=== PATIENT | female | born 1955 | race African-American/Black ===

== ENCOUNTER → 2017-06-13 | Outpatient (CLI) | payer OTHER ==
--- NOTE | ~2017-06-13 | 2DMMODE ---
[facility] [address] [address] 2 D/M-MODE ECHOCARDIOGRAM Name: LUPE HADDAD [id number] Admission: 06/13/17 Attend Phys: Cain Padron, Discharge: Date of : 55 Date of Service: 06/13/17 1220 Report #: [id number] THIS REPORT FOR: //name// APPROVED REPORT Study performed: 06/13/2017 09:45:50 EXAM: Comprehensive 2D, Doppler, and color-flow Echocardiogram Patient Location: Out-Patient Room #: Echo lab Status: routine Other Information Study Quality: Good Indications Hypertension/HDD 2D Dimensions RVDd: 42.19 mm LVEF(%): 61.50 (>50%) IVSd: 11.47 (7-11mm) LVOT Diam: 19.36 (18-24mm) LVDd: 41.07 mm PWd: 11.17 (7-11mm) Ascending Ao: 31.31 (22-36mm) LVDs: 27.66 (25-40mm) Aortic Root: 27.27 mm IVC: 15.00 mm Ulrich's LVEF: 61.50 % Volumes Left Atrial Volume (Systole) Single Plane 4CH: 34.97 mL Single Plane 2CH: 48.56 mL LA ESV Index: 24.00 mL/m2 Aortic Valve AoV Peak Francisco Javier.: 1.20 m/s AO Peak Gr.: 5.78 mmHg LVOT Max P.48 mmHg LVOT Max V: 0.93 m/s KWAKU Vmax: 2.29 cm2 Mitral Valve E/A Ratio: 1.3 MV Decel. Time: 301.00 ms MV E Max Francisco Javier.: 0.93 m/s MV A Francisco Javier.: 0.70 m/s MV PHT: 87.29 ms IVRT: 106.11 ms [facility] [place] [address] 2 D/M-MODE ECHOCARDIOGRAM Name: LUPE HADDAD [facility] [id number] Admission: 06/13/17 Attend Phys: Cain Padron, Discharge: Date of : 55 Date of Service: 06/13/17 1220 Report #: [id number] Pulmonary Valve PV Peak Francisco Javier.: 0.69 m/s PV Peak Gr.: 1.92 mmHg OR End Vmax: 0.91 m/s Pulmonary Vein P Vein S: 0.44 m/s P Vein A: 0.28 m/s P Vein D: 0.39 m/s P Vein A Dur.: 120.0 msec P Vein S/D Ratio: 1.13 Tricuspid Valve TR Peak Francisco Javier.: 2.49 m/s RAP Estimate: 5.00 mmHg TR Peak Gr.: 24.78 mmHg PA Pressure: 30.00 mmHg Left Ventricle The left ventricle is normal size. There is normal LV segmental wall motion. There is normal left ventricular wall thickness. The left ventricular systolic function is normal. The left ventricular ejection fraction is within the normal range. LVEF is 55-60%. The left ventricular diastolic function is normal. Right Ventricle The right ventricle is normal size. The right ventricular systolic function is normal. Atria The left atrium size is normal. Right atrium is borderline dilated. Aortic Valve The aortic valve is normal in structure. No aortic regurgitation is present. There is no aortic valvular stenosis. Mitral Valve The mitral valve is normal in structure. Mild mitral regurgitation. No evidence of mitral valve stenosis. Tricuspid Valve The tricuspid valve is normal in structure. There is mild tricuspid regurgitation. The right atrial pressure is estimated at 5 mmHg. There is no pulmonary hypertension. The estimated PAP was 30 mmHg. Pulmonic Valve The pulmonary valve is normal in structure. Trace pulmonic [facility] [address] [place] [address] 2 D/M-MODE ECHOCARDIOGRAM Name: LUPE HADDAD Room #: [facility] Bambi#: [id number] Admission: 06/13/17 Attend Phys: Cain Padron, Discharge: Date of : 55 Date of Service: 06/13/17 1220 Report #: [id number] regurgitation. Great Vessels The aortic root is normal in size. IVC is normal in size and collapses >50% with inspiration. Pericardium There is no pericardial effusion. <Conclusion> The left ventricle is normal size. LVEF is 55-60%. Right atrium is borderline dilated. The aortic valve is normal in structure. The mitral valve is normal in structure. Mild mitral regurgitation. The tricuspid valve is normal in structure. There is mild tricuspid regurgitation. The right atrial pressure is estimated at 5 mmHg. There is no pulmonary hypertension. The estimated PAP was 30 mmHg. <ELECTRONICALLY SIGNED> By: Evens Thakur MD 06/13/17 1220 1220 1220 Evens Thakur MD /INF
== END ==
LOC: CV 07:11
DX: I08.1 Rheumatic disorders of both mitral and tricuspid valves (principal); I10 Essential (primary) hypertension

== ENCOUNTER → 2017-08-10 | Outpatient (CLI) | payer OTHER | LOC: NUC 09:22 | DX: I10 Essential (primary) hypertension (principal); R06.02 Shortness of breath; R07.89 Other chest pain ==